=== PATIENT | female | born 1975 | race Hispanic/Latino ===

== ENCOUNTER 2021-12-25 13:16 | Day surgery (SDC) | payer OTHER ==
[2021-12-24 11:32] VITALS: BMI 27.1
[2021-12-25] MEDS ORDERED: Fentanyl 100 MCG/2 ML VIAL ONE ×2 (13:58→14:14)
[2021-12-25] MEDS ORDERED: Midazolam HCl 2 mg/2 ml Vial ONE (13:58)
[2021-12-25] MEDS ORDERED: ceFAZolin 2 GM/Dextrose 50 ML IVPB ONE (13:59)
[2021-12-25] MEDS ORDERED: Dexamethasone 20 MG/5 ML VIAL ONE (14:11)
[2021-12-25] MEDS ORDERED: Ondansetron PF 4 MG/2 ML Vial ONE (14:11)
[2021-12-25] MEDS ORDERED: PROPOFOL 200 MG/20 ML VIAL ONE (14:11)
[2021-12-25] MEDS ORDERED: Lidocaine 1% PF 5 ML VIAL ONE (14:11)
== END 2021-12-25 17:00 | disposition home or self-care (01) ==
LOC: SDC 13:16
PROVIDERS: ATTEND Orthopaedic Surgery
PROC: 0PSJ04Z Reposition Left Radius with Internal Fixation Device, Open Approach (ICD-10-PCS; principal; 2021-12-25)
PROC: 3E0T3BZ Introduction of Anesthetic Agent into Peripheral Nerves and Plexi, Percutaneous Approach (ICD-10-PCS; principal; 2021-12-25)
DX: S52.532A Colles' fracture of left radius, initial encounter for closed fracture (principal); W19.XXXA Unspecified fall, initial encounter
CPT/HCPCS: 76000; C1713; C1776; J0690; J1100; J2250; J2405; J2704; J3010